=== PATIENT | male | born 1955 | race Caucasian/White ===

== ENCOUNTER 2017-09-03 09:53 | Emergency (ER) | payer BC, SELFPAY ==
[~2017-09-03] VITALS: Ht 167.6 cm; Wt 63.0 kg
[2017-09-03 10:19] LABS: BASO % 0.4 % (0.0-1.0); EOS # 0.1 10^3/uL (0.0-0.50); EOS % 1.1 % (0.0-3.0); IMMATURE GRANULOCYTE % 0.2 % (0-0); LYMPH # 1.3 10^3/uL (1.5-4.5); LYMPH % 29.1 % (24.0-44.0); MEAN CORPUSCULAR HEMOGLOBIN 31.4 pg (27.0-33.0); MEAN CORPUSCULAR HGB CONC 34.5 g/dl (32.0-36.5); MEAN CORPUSCULAR VOLUME 91.2 fl (80.0-96.0); MONO # 0.6 10^3/uL (0.0-0.8); MONO % 12.1 % (0.0-5.0); NEUTROPHILS # 2.6 10^3/uL (1.8-7.7); NEUTROPHILS % 57.1 % (36.0-66.0); PLATELET COUNT, AUTOMATED 170 10^3/uL (150-450); RED CELL DISTRIBUTION WIDTH 12.6 % (11.5-14.5); WHITE BLOOD COUNT 4.5 10^3/uL (4.0-10.0)
--- NOTE | 2017-09-03 10:20 | REP ---
CT of the brain without IV contrast: There are no comparisons. There is no hemorrhage. There is no edema, mass effect or midline shift. Cortical stripe is unremarkable. Ventricles are normal size and midline. The visualized paranasal sinuses and mastoid air cells are clear. Impression: There is no hemorrhage, acute infarct or mass. Negative CT study of the brain. Signed by Praveen Babin MD 09/03/2017 10:12 A
--- NOTE | 2017-09-03 10:21 | REP ---
Portable chest, single AP view, 09:58 a.m.: There are no comparisons. There is a tiny metallic density superimposed over the right hemithorax, laterally of uncertain significance, possibly a foreign body, possibly in clothing. Lung farah otherwise clear. Cardiac size normal. The venu, mediastinum, and bony thorax are unremarkable. Impression: There are no acute cardiopulmonary findings. There is a tiny metallic density superimposed over the right hemithorax. Signed by Praveen Babin MD 09/03/2017 10:13 A
[2017-09-03] MEDS ORDERED: ALTEPLASE 100MG INJ (J2997) As Ordered ONE (10:24)
[2017-09-03 10:44] LABS: ANION GAP 8 MEQ/L (8-16); BLOOD UREA NITROGEN 19 MG/DL (7-18); CALCIUM LEVEL 8.5 MG/DL (8.5-10.1); CARBON DIOXIDE LEVEL 28 MEQ/L (21-32); CHLORIDE LEVEL 105 MEQ/L (98-107); CREATININE FOR GFR 1.14 MG/DL (0.70-1.30); GLOMERULAR FILTRATION RATE > 60.0 (>56); GLUCOSE, FASTING 96 MG/DL (70-105); POTASSIUM SERUM 4.1 MEQ/L (3.5-5.1); SODIUM LEVEL 141 MEQ/L (136-145)
[2017-09-03] MEDS ORDERED: ALTEPLASE 100MG INJ (J2997) IV ONE (10:45)
[2017-09-03] MEDS ORDERED: DILUENT IV ONE (10:45)
[2017-09-03] MEDS ORDERED: NS 1,000 ML IV ONE (10:45)
[2017-09-03] MEDS ORDERED: ALTEPLASE RECOMBINANT IV ONE (10:45)
[2017-09-03 10:47] LABS: INR 0.98
[2017-09-03 11:05] VITALS: BP 153/87
--- NOTE | 2017-09-03 19:34 | ECGEPIP ---
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
== END 2017-09-03 11:07 | disposition short-term general hospital (02) ==
LOC: M ED 09:53
DX: I61.9 Nontraumatic intracerebral hemorrhage, unspecified (principal)
CPT/HCPCS: 70450; 71010; 80048; 82550; 82553; 85025; 85610; 85730; 86850; 86900; 86901; 93005; 93041; 94760; 96374; 99285; J2997